=== PATIENT | female | born 1990 | race Caucasian/White ===

== ENCOUNTER 2017-08-26 14:32 | Emergency (ER) | payer OTHER ==
--- NOTE | 2017-08-26 14:39 | ER Report ---
History and Physical Time Seen By MD: 14:39 HPI/ROS CHIEF COMPLAINT: Dog bite HISTORY OF PRESENT ILLNESS: This is a 27-year-old female who presents to the emergency department for a dog bite. Patient states that 6 days ago she was bit by a dog in the left calf, does not know the dog, she did call animal control they were unable to find the dog. She did follow up with [facility] they did update her tetanus did not put her on antibiotics and did not starts rabies prophylaxis. Patient is here today for the rabies vaccine and the immunoglobulin. Patient denies fevers, aches, chills, nausea or vomiting. REVIEW OF SYSTEMS: Respiratory: No cough, no dyspnea. Cardiovascular: No chest pain, no palpitations. Gastrointestinal: No vomiting, no abdominal pain. Musculoskeletal: As above. Integumentary: As above. Allergies: Coded Allergies: nickel (Verified Allergy, Unknown, 08/26/17) Home Meds Reported Medications [mirena] No Conflict Check 08/26/17 Past Medical/Surgical History Patient has a past medical and surgical history of IUD broken nose, wears glasses, wisdom teeth extraction. Reviewed Nurses Notes: Yes Constitutional Vital Sign - Last 24 Hours 08/26/17 08/26/17 14:37 15:55 Temp 98.7 98.6 Pulse 105 100 Resp 18 19 B/P (MAP) 166/80 145/72 (96) Pulse Ox 94 97 O2 Delivery Room Air Room Air Physical Exam General Appearance: The patient is alert, has no immediate need for airway protection and no current signs of toxicity. Eyes: Pupils equal and round no injection. Respiratory: Chest is non tender, lungs are clear to auscultation. Cardiac: regular rate and rhythm. Gastrointestinal: Abdomen is soft and non tender, no masses, bowel sounds normal. Musculoskeletal: Neck: Neck is supple and non tender. Extremities have full range of motion and are non tender. Skin: Healing puncture wound and bite parker to the left distal calf with purple and yellowish ecchymosis, no cellulitis, no drainage or signs of infection. DIFFERENTIAL DIAGNOSIS: After history and physical exam differential diagnosis was considered for dog bite and rabies. Medical Decision Making ED Course/Re-evaluation ED Course The patient was admitted to room. History and physical were obtained. Fracture diagnoses were considered. After discussion with the patient's elected to proceed with the his vaccine and RIG. She will either follow-up here or try to follow-up with [facility]. The patient had no other questions or concerns at this time and was discharged home. Decision to Disposition Date: Aug 26, 2017 Decision to Disposition Time: 15:47 Depart Departure Latest Vital Signs Vital Signs Date Time Temp Pulse Resp B/P (MAP) Pulse Ox O2 Delivery O2 Flow Rate FiO2 08/26/17 15:55 98.6 100 19 145/72 (96) 97 Room Air Impression: Primary Impression: Dog bite Additional Impressions: Encounter for prophylactic rabies immune globin Rabies, need for prophylactic vaccination against Condition: Improved Disposition: HOME OR SELF-CARE Patient Instructions: Rabies (ED), Rabies Immune Globulin (By injection), Rabies Vaccine (ED) Additional Instructions: Drink plenty of fluid. Get plenty of rest. Continue to monitor for signs and symptoms of infection. You have been given the Rabies Immunoglobulin. You will return either here of [facility] for the subsequent rabies vaccine injections on day 0 (today), 3, 7 and 14. Return to the ED for any other concerns or worsening symptoms. Problem Qualifiers Primary Impression: Dog bite Encounter type: initial encounter Qualified Codes: W54.0XXA - Bitten by dog , initial encounter SHANEKA YANCEY [employer] Aug 26, 2017 14:39
[2017-08-26] MEDS ORDERED: RABIES VAC(HUMAN) DIPL 2.5/KIT IM ONLY ONE (14:50)
[2017-08-26] MEDS ORDERED: RABIES IMM GLOB(HUMAN) 150U/ML IM ONLY PRN (14:50)
[2017-08-26] MEDS ORDERED: mirena (14:55)
[2017-08-26] MEDS ORDERED: RABIES IMM GLOB(HUMAN) 150U/ML IM ONLY ONE (15:05)
[2017-08-26 15:55] VITALS: BP 145/72
== END 2017-08-26 15:55 | disposition home or self-care (01) ==
LOC: ER 14:37
DX: S81.832A Puncture wound without foreign body, left lower leg, initial encounter (principal); W54.0XXA Bitten by dog, initial encounter
CPT/HCPCS: 90376; 90471; 90675; 96372; 99281

== ENCOUNTER 2017-09-09 13:25 | Outpatient (RCR) | payer OTHER ==
[2017-08-29 09:05] VITALS: BP 138/94
[2017-09-02 13:29] VITALS: BP 115/81
[~2017-09-09 13:25] MED LIST: RABIES VAC(HUMAN) DIPL 2.5/KIT IM ONLY ONE; mirena
[2017-09-09] MEDS ORDERED: RABIES VAC(HUMAN) DIPL 2.5/KIT IM ONLY ONE (13:35)
[2017-09-09 13:38] VITALS: BP 111/78
== END 2017-10-12 11:20 | disposition home or self-care (01) ==
LOC: SPU 13:25
PROVIDERS: ATTEND Nurse Practitioner Family
DX: T14.8XXA Other injury of unspecified body region, initial encounter (principal); W54.0XXA Bitten by dog, initial encounter
CPT/HCPCS: 90471; 90675